=== PATIENT | female | born 1980 | race Caucasian/White ===

== ENCOUNTER 2019-01-10 13:10 | Outpatient (CLI) | payer OTHER ==
[~2019-01-10] VITALS: Ht 162.6 cm; Wt 83.5 kg
[2019-01-10 13:24] VITALS: Ht 162.6 cm; Wt 83.5 kg
[2019-01-10 13:25] VITALS: BP 116/74; PULSE 78; RESP 20
[2019-01-10] MEDS ORDERED: METF-849 PO ×2 (13:36→13:43)
[2019-01-10] MEDS ORDERED: PNV11TAB PO (13:39)
--- NOTE | 2019-01-10 17:36 | HP ---
Date/Time of Note Date/Time of Note DATE: 01/10/19 TIME: 17:32 OB - History Hx of Present Free Text/Dictation @ with GDM and PIH Increased Cr 1.3 and Low plt 109 Patient is evaluated on 's behalf and he will follow up on the patient : 3 Para: 2 Care: Good Care Ultrasounds: Normal mid trimester US Obstetrical Complications: Gestational Diabetes Past Family/Social History * Past Medical, Surgical, Family and Obstetric Histories reviewed from chart. OB Admission Exam Vital Signs Vital Signs Vital Signs Date Temp Pulse Resp B/P (MAP) Pulse Ox O2 O2 Flow FiO2 Time Delivery Rate 01/10/19 97.8 78 20 116/74 Room Air 13:25 (88) Physical Exam Abdomen: WNL Extremities: Normal Cervical Dilatation: Fingertip Effacement: 0% Station: Ballotable Membranes: Intact Heart Rate: 140's Accelerations: Accelerations Present Decelerations: No Decelerations Varibility: Moderate Contractions on Admission: 6-10 Minutes Apart Last 72 hourBlood Glucose Bedside Glucose - 72 Hours Test 01/10/19 13:43 Bedside Glucose 124 mg/dL (70-220) Last 72 hours Lab Results CBC & BMP 01/10/19 14:18 Liver Function Test 01/10/19 14:18 Alanine Aminotransferase (ALT/SGPT) 40 Albumin 2.9 L Alkaline Phosphatase 282 H Aspartate Amino Transf (AST/SGOT) 41 Direct Bilirubin 0.00 Total Protein 6.0 L OB Assessment/Plan Reason for admission: observation Plan: Expectant Management Other plan: 1.Admission 2.Observation 3.Perinatology consult for Delivery 4. is in charge and will follow up on patient SYED AMAYA M.D. Jan 10, 2019 17:36
--- NOTE | 2019-01-10 19:17 | TRIAGE ---
OB Triage Datetime Report Generated by CPN: 01/10/2019 19:17 Datetime: 01/10/2019 18:29 Stage of : PT TOOK OFF MONITOR AND STATED THAT DR CHETAN WANTED HER TO GO TO HIS CLINIC IN THE MORNING,,WILL CALL DR ESHAGHIAN Datetime: 01/10/2019 17:00 Labor Evaluation Frequency: X6 Monitor Mode: External Duration (sec)2399: 120 Quality: Mild Pattern: Normal: <= 5 Contractions in 10 Minutes Resting Tone [place]: Relaxed Heart Rate FHR Baseline Rate: 150 Monitor Mode: External US FHR Baseline Changes: No Baseline Change (Annotations: CHANGE OF BASELINE FROM 140-150 BASELINE FHT'S) Variability: Moderate 6-25 bpm Accelerations: 15X15 Decelerations: None Category: Category I Datetime: 01/10/2019 16:00 Labor Evaluation Frequency: X4 Monitor Mode: External Duration (sec)2399: 80-90 Quality: Mild Pattern: Normal: <= 5 Contractions in 10 Minutes Resting Tone [place]: Relaxed Heart Rate FHR Baseline Rate: 140 Monitor Mode: External US FHR Baseline Changes: No Baseline Change Variability: Moderate 6-25 bpm (Annotations: WITH PERIODS OF MINIMAL VARIABILITY) Accelerations: 15X15 Decelerations: None Category: Category I Datetime: 01/10/2019 15:17 Stage of : OB Triage Datetime: 01/10/2019 15:01 Heart Rate FHR Baseline Rate: 140 Monitor Mode: External US Variability: Minimal - Undetectable to <=5 bpm Accelerations: 15X15 Decelerations: None Comments: PERIOID OF MINIMAL AND MODERATE VARIAILITY Datetime: 01/10/2019 14:30 Stage of : at 1400 dr mccallum notified of pt to see with elevated b'ps,pih labs and bpp ordered Datetime: 01/10/2019 13:48 Stage of : OB Triage Temperature Route: Oral Labor Evaluation Frequency: 0 Monitor Mode: External Heart Rate FHR Baseline Rate: 150 Monitor Mode: External US FHR Baseline Changes: No Baseline Change Variability: Moderate 6-25 bpm Accelerations: 15X15 Decelerations: None Category: Category I Datetime: 01/10/2019 13:46 Stage of : OB Triage Maternal Assessment Level of Consciousness: Fully Conscious DTR's/Clonus: DTRs 2+; No Clonus Headache: Denies Blurred Vision: No Respiratory Effort: Unlabored; Regular Rhythm; Equal Expansion Breath Sounds, Left: Clear and Equal Breath Sounds, Right: Clear and Equal Nausea/Vomiting: Denies RUQ Epigastric Pain: Denies Lower Extremities Edema: None Degree: None Upper Extremities Edema: Bilateral Upper Extremities (Annotations: ANKLES) Degree: None Facial Edema: None Temperature Route: Axillary Fall Risk Assessment History of Falling: (0) No Secondary Diagnosis: (0) No Ambulatory Aid: (0) Bedrest/Nurse Assist IV Therapy: (0) No Gait: (0) Normal/Bedrest/Immobile Mental Status: (0) Oriented to Own Ability Fall Score: 0 Fall Risk Score Definition: No Risk: No action required Datetime: 01/10/2019 10:50 Arrived By: Ambulatory Arrived From: Office Chief Complaint: SENT FROM PERINATOLOGY FOR ELEVATED BP'S,PIPER PIPER-16.2/EFW 4400 GMS Movement: Present Contractions: Denies/Absent Rupture of Membranes: Ruptured Vaginal Discharge: Denies Recent Sexual Intercouse: Denies Abdominal Trauma: Not Applicable Patient Complaints: None Time Provider Notified: 01/10/2019 13:50 Provider Notified: DR LANCE Initial Plan: EFN,V/S
== END 2019-01-10 18:36 | disposition left against medical advice (07) ==
LOC: OBT 13:10 → L-D 13:13 → OBT 18:36
PROVIDERS: ATTEND Obstetrics & Gynecology
DX: O24.419 Gestational diabetes mellitus in pregnancy, unspecified control (principal); O09.523 Supervision of elderly multigravida, third trimester; Z3A.32 32 weeks gestation of pregnancy; O41.03X0 Oligohydramnios, third trimester, not applicable or unspecified
CPT/HCPCS: 76818; 80053; 82962; 84560; 85025; 85362; 85384; 85610; 85730; Z7500; G0463